=== PATIENT | female | born 1960 | race Caucasian/White ===

== ENCOUNTER → 2016-07-14 | Outpatient (CLI) | payer BC ==
[~2016-07-14] MED LIST: ADVIN25050 INH; CZRUNK; GFNSR600; PSEU30TA20; SNG10 PO
== END | disposition home or self-care (01) ==
LOC: C.LABSPEC 10:57
PROVIDERS: ATTEND Obstetrics & Gynecology
DX: Z01.419 Encounter for gynecological examination (general) (routine) without abnormal findings (principal); N76.2 Acute vulvitis

== ENCOUNTER → 2016-07-14 | Outpatient (CLI) | payer BC | END | disposition home or self-care (01) | LOC: C.PAPS 11:24 | PROVIDERS: ATTEND Obstetrics & Gynecology | DX: Z01.419 Encounter for gynecological examination (general) (routine) without abnormal findings (principal); N76.2 Acute vulvitis ==

== ENCOUNTER → 2016-10-13 | Outpatient (CLI) | payer BC ==
--- NOTE | 2016-10-13 15:37 | MAMMOGRAPHY REPORT ---
UNILATERAL LEFT DIGITAL DIAGNOSTIC MAMMOGRAM TOMOSYNTHESIS WITH CAD: 10/13/2016 CLINICAL HISTORY: Six-month follow-up of left breast calcifications. TECHNIQUE: Breast tomosynthesis in addition to standard 2D mammography was performed. Current study was also evaluated with a Computer Aided Detection (CAD) system. Left CC and MLO 2-D and tomosynthes is images and spot magnification left CC and MLO views were obtained. COMPARISON: Comparison is made to exams dated: 02/17/2016 ultrasound, 02/17/2016 mammogram - [facility], 05/19/2015 mammogram, 05/11/2012 mammogram, 04/15/2011 mammogram, and 10/01/2009 ma mmogram. BREAST COMPOSITION: The tissue of the left breast is heterogeneously dense, which may obscure small masses. FINDINGS: Spot magnification views of the left breast demonstrate loosely grouped calcifications in the left upper inner quadrant, which are smudgy and amorphous on the cc view and demonstrate layering on the lateral view, consistent with benign milk of calcium. The calcifications do not appear signi ficantly changed compared to the February 2016 exam. The remainder of the left breast is stable comp ared to prior exams, without suspicious masses, calcifications, or areas of architectural distortion noted. The previously seen questionable architectural distortion within the left lateral breast is n ot evident on the current exam and is consistent with normal fibroglandular tissue. The patient repo rts she has continued right breast pain although it is improved. IMPRESSION: ACR BI-RADS CATEGORY 2: BENIGN The left upper inner quadrant calcifications are stable compared to the February 2016 exam, and are b enign and consistent with milk of calcium. There is no mammographic evidence of malignancy in the lef t breast. Return to annual mammogram screening schedule is recommended, due February 2017. Also annmarie mmend continued clinical follow-up for right breast pain. The patient has been verbally notified of the results. Approximately 10% of breast cancers are not detected with mammography. A negative mammographic report should not delay biopsy if a clinically suggestive mass is present. Lillian Yo M.D. /:10/13/2016 08:56:51 Director Financial Planning: Abby CORDOVA)(Eric), [facility] letter sent: Normal 1/2 BI-RADS Code: ACR BI-RADS Category 2: Benign
== END | disposition home or self-care (01) ==
LOC: C.MAMM 08:12
PROVIDERS: ATTEND Student in an Organized Health Care Education/Training Program
DX: R92.1 Mammographic calcification found on diagnostic imaging of breast (principal)

== ENCOUNTER → 2017-05-16 | Outpatient (CLI) | payer OTHER, BC ==
[~2017-05-16] MED LIST changes: +OPTIRAY 320 IV PRN
--- NOTE | 2017-05-16 15:10 | DIAGNOSTIC IMAGING REPORT ---
(CHEST) THORAX WITH CLINICAL HISTORY: 57 years-old Female presenting with PULMONARY NODULE, cough. TECHNIQUE: Multidetector CT imaging of the chest was performed after the administration of intravenous contrast. IV contrast: 92 mL of Optiray 320. A dose lowering technique was used consistent with the principles of ALARA (as low as reasonably achievable). COMPARISON: None. CT DOSE (mGy.cm): The estimated cumulative dose is 596.70 mGy.cm. FINDINGS: Custody Assistant topogram: Unremarkable. On soft tissue windows, normal thyroid. Two hyperdense nodules in the superior anterior mediastinum noted, indeterminate (series 4 image 44 and image 50). These are separate from the thyroid. No axillary, supraclavicular, hilar, or mediastinal lymphadenopathy. Normal aorta. Normal heart size. No pericardial or pleural effusion. Hepatic steatosis. On lung windows, solid partially calcified nodule in the right upper lobe measuring 13 mm (series 4 image 99). This does not clearly contain macroscopic fat. There appears to be associated bronchial debris in the subsegmental bronchus supplying this region. Punctate solid nodule in the right middle lobe (series 4 image 142). Calcified granuloma in the right lower lobe. Minimal bandlike opacities in the left lung likely scarring or atelectasis. Central airways patent. On bone windows, degenerative changes of the spine. IMPRESSION: 1. Solid 13 mm right upper lobe nodule, which is partially calcified. This is not contain macroscopic fat to suggest a hamartoma. This is indeterminate. Follow-up per Zayra Society 2017 recommendations below. 2. Additional punctate right middle lobe nodule. 3. Indeterminate hyperdense nodules in the superior mediastinum. Attention on follow-up. Please refer to below summary of Fleischner Society 2017 recommendations for follow-up of incidental CT nodules (H Sunshine et al. Guidelines for management of incidental pulmonary nodules detected on CT images: From the Fleischner Society 2017. Radiology 2017; 284: 228-243.) SOLID NODULES Single nodule; size < 6 mm * Low risk patients: No routine follow-up * High risk patients: Optional CT at 12 months Single nodule; size 6-8 mm * Low risk patients: CT at 6-12 months, then consider CT at 18-24 months * High risk patients: CT at 6-12 months, then at 18-24 months Single nodule; size > 8 mm * Either low or high risk patients: Considered CT at 3 months, PET/CT, or tissue sampling Multiple nodules; size < 6 mm * Low risk patients: No routine follow up * High risk patients: Optional CT at 12 months Multiple nodules; size 6-8 mm * Low risk patients: CT at 3-6 months, then consider CT at 18-24 months * High risk patients: CT at 3-6 months, then at 18-24 months Multiple nodules; size > 8 mm * Low risk patients: CT at 3-6 months, then consider at 18-24 months * High risk patients: CT at 3-6 months, then at 18-24 months Note: These guidelines apply to incidental nodules. These guidelines do not apply to patients younger than 35 years, immunocompromised patients, or patients with cancer. * Low risk patients: Minimal or absent history of smoking and/or other known risk factors * High risk patients: History of smoking, exposure to other carcinogens, emphysema, fibrosis, upper lobe location, family history of lung cancer, etc. * If a nodule up to 8 mm is partly solid or is ground glass, further follow-up is required after 24 months to exclude possible slow growing adenocarcinoma. SUBSOLID NODULES Single ground-glass nodule * Nodule size < 6 mm: No routine follow-up * Nodule size > or = 6 mm: CT at 6-12 months to confirm persistence, then CT every 2 years until 5 years Single part-solid nodule * Nodule size < 6 mm: No routine follow-up * Nodules size > or = 6 mm: CT at 3-6 months to confirm persistence. If unchanged and solid component remains < 6 mm, annual CT should be performed for 5 years Multiple nodules * Nodule size < 6 mm: CT at 3-6 months. If stable, consider CT at 2 and 4 years. * Nodules size > or = 6 mm: CT at 3-6 months. Subsequent management based on the most suspicious nodule(s) Electronically signed by: Justin Collins M.D. 05/16/2017 3:09 PM Dictated Date/Time: 05/16/2017 3:04 PM
== END | disposition home or self-care (01) ==
LOC: C.CTS 14:43
PROVIDERS: ATTEND Physician Assistant
DX: R91.1 Solitary pulmonary nodule (principal); R91.8 Other nonspecific abnormal finding of lung field

== ENCOUNTER → 2017-05-25 | Outpatient (CLI) | payer OTHER, BC ==
[~2017-05-25] MED LIST changes: -OPTIRAY 320 IV PRN
--- NOTE | 2017-05-25 13:47 | DIAGNOSTIC IMAGING REPORT ---
PET/CT SKULL-THIGH HISTORY: Lung nodule R91.1 TECHNIQUE: PET/CT was performed from the base of the skull through the pelvis following the intravenous administration of 14.8 mCi of F18-FDG. Non-contrast CT imaging was performed over the same range without breath-hold for attenuation correction of PET images and anatomic correlation, but not for primary interpretation as it is not of standard diagnostic quality. CT DOSE: COMPARISON: CT chest 05/16/2017 FINDINGS: HEAD AND NECK: There is no FDG-avid disease or significant lymphadenopathy in the imaged portions of the head and the neck. CHEST: There is no FDG-avid disease in the chest. There is no axillary, mediastinal, or hilar lymphadenopathy. There is no pleural or pericardial effusion. There is no air-space disease or suspicious lung nodule. Calcified right midlung nodular shows no abnormal activity characteristics. Small subcentimeters nodes the superior mediastinum also show no activity of significance. ABDOMEN/PELVIS: Below the diaphragm, tracer is distributed physiologically in the gastrointestinal and genitourinary tracts. There is no significant lymphadenopathy and no FDG-avid disease. MUSCULOSKELETAL: There is no FDG-avid or destructive bone lesion. IMPRESSION: 1. No evidence for abnormal metabolic activity characteristics. 2. A nodular density of the right lung shows no significant FDG activity is highly suspect for a benign calcified granuloma. 3. These are mediastinal nodes procedure described are too small to register on this scan 4. A one-year CT of the chest follow-up is felt to be satisfactory The above report was generated using voice recognition software. It may contain grammatical, syntax or spelling errors. Electronically signed by: Gianluca Felder M.D. 05/25/2017 1:45 PM Dictated Date/Time: 05/25/2017 1:33 PM
== END | disposition home or self-care (01) ==
LOC: C.PET 10:40
PROVIDERS: ATTEND Physician Assistant
DX: R91.8 Other nonspecific abnormal finding of lung field (principal)

== ENCOUNTER → 2017-06-16 | Day surgery (SDC) | payer OTHER, BC ==
--- NOTE | 2017-06-15 21:07 | History and Physical ---
History & Physical Date of Service Jun 15, 2017. History & Physical 57-yo female presents for bronchoscopic evaluation of lung nodule, bronchiectasis and recurrent cough after multiple rounds of antibiotics PMHx includes: History of asthma, GERD, fibromyalgia, obesity, chronic sinusitis. She is a life-long non-smoker. Exposure history: stone and salt dust through [employer]. Patient reports longstanding history of upper and lower respiratory symptoms. She states that as a very young child she developed symptoms of recurrent severe cough often times productive. She reports at 1 point when she was a teenager she was diagnosed with asthma symptomatic of frequent cough and intermittent laryngitis and wheeze. Additionally she has chronic difficulty with her sinuses and has seen ENT in the past without ongoing follow-up. She states that she did have an ENT - turbinate surgery surgery however the details of this are unknown. She has been prescribed Advair 500/50 as well as ProAir duo nebs in the past. On evaluation of her hospital chart, it appears 01/2007 she underwent bronchoscopy with Dr. Mireles (no growth on BAL) then transferred care to Dr. Maharaj. 11/[address] Maharaj for recurrent / persistent cough with intermittent hemoptysis which she noted 2-3 months of post- procedural relief (BAL + saprophytic fungus only). I do have a PFT on record approximately 2008 which described FVC: 95 %, FEV1: 96 %, FEF 25-defer as 5 % : 87 %, TLC 123 %, RV: 164 %. The patient states that generally she will develop significant sinus symptoms and often requires up to 3 weeks of antibiotics. She has not seen her ear nose and throat physician for quite some time. 02/2017 she developed symptoms of sinus pressure, postnasal drainage since and bloody rhinorrhea. Additionally she reports associated symptoms of cough and chest congestion. She is prescribed azithromycin without improvement. She returned to her physician's office at which point she was prescribed what may have been Augmentin as well as a prednisone taper. Unfortunately symptoms of cough wheeze, upper and lower respiratory congestion persisted. She returned to her physician's office at which point she completed a course of levofloxacin as well as a Medrol Dosepak (Reports this is better tolerated vs prednisone) and Tessalon Perles. She has been using her nebulizer frequently however continue to describe persistent symptoms. Her workup included a chest x-ray which was abnormal particularly on the right which ultimately led to a CT of the chest (as below) and PET/CT today. CT 05/16/2017: Solid partially calcified nodule in the right upper lobe measuring 13 mm with associated bronchial debris and bronchiectasis supplying this region. Punctate solid nodule in RML as well as calcified granuloma in RLL with minimal bandlike opacities in left lung likely scarring or atelectasis. PET-CT 05/25/2017: No FDG uptake in the chest. No evidence of lymphadenopathy. Patient denies any personal history of tobacco use. She reports some secondhand exposure through family members. She was born in [place] and lived in [place] from [id number] before moving back to [place]. She currently works for [employer] x 28 years with exposure to salt and mixed stone dust. She denies any prior service in the . She reports very very rare alcohol use and denies recent travel. Patient lives with her father who is chronically ill and she provides his home care. She has 1 cat in the home he is approximately 13 years old. Heat: oil. Patient reports her paternal uncle was diagnosed with emphysema but otherwise denies any family history of lung disease or lung cancer. She denies any personal history of cancer or significant cardiac disease. She is prescribed Flonase as well as Singulair and use the Neti pot for her allergy/sinus symptoms. Additionally she does take ranitidine and Protonix for GI acid reflux. Review of Systems Constitutional: recent with prednisone lb weight gain, but no fever, no chills and not feeling tired. Eyes: negative. ENT: nosebleeds and nasal discharge, but as noted in HPI and no sore throat. Cardiovascular: no chest pain, no palpitations and no lower extremity edema. Respiratory: cough, wheezing and shortness of breath during exertion. Gastrointestinal: heartburn. Hematologic/Lymphatic: negative. Active Problems 1. Asthma (J45.909) 2. Bilateral groin pain (R10.30) 3. Fatty liver (K76.0) 4. Hypertension (I10) 5. Irregular menstrual cycle (N92.6) 6. Rectovaginal fistula (N82.3) 7. Scoliosis (M41.9) 8. Thickened endometrium (R93.8) 9. Type 2 diabetes mellitus (E11.9) 10. Vulvitis (N76.2) 11. Well woman exam with routine gynecological exam (Z01.419) Surgical History 1. History of Dental Surgery 2. History of Dilation And Curettage 3. History of Laparosc Fulguration Pelvic Peritoneum Endometriotic Tissue 4. History of Tubal Ligation Social History Never smoker Current Meds 1. Estrace 0.1 MG/GM Vaginal Cream; INSERT 1 GRAM INTRAVAGINALLY TWICE WEEKLY; Therapy: 03Jul2014 to (Last Rx:03Jul2014) Requested for: 03Jul2014 Ordered 2. Fluconazole 100 MG Oral Tablet; 1 tablet by mouth daily for 7 days; Therapy: 14Jul2016 to (Last Rx:14Jul2016) Requested for: 14Jul2016 Ordered 3. Nystatin [id number] UNIT/GM External Cream; apply to affected area tid for 7-10 days; Therapy: 14Jul2016 to (Last Rx:14Jul2016) Requested for: 14Jul2016 Ordered 4. Advair Diskus MISC; Therapy: (Recorded:[id number]) to Recorded 5. Albuterol Sulfate HFA AERS; Therapy: (Recorded:[id number]) to Recorded 6. Fish Oil 1000 MG Oral Capsule; TAKE 1 CAPSULE DAILY; Therapy: (Recorded:[id number]) to Recorded 7. Flexeril 10 MG TABS; TAKE TABLET PRN; Therapy: (Recorded:[id number]) to Recorded 8. Losartan Potassium 50 MG Oral Tablet; TAKE 1 TABLET DAILY; Therapy: (Recorded:[id number]) to Recorded 9. Protonix 40 MG Oral Packet; Therapy: (Recorded:14Jul2016) to Recorded 10. Singulair TABS; Therapy: (Recorded:[id number]) to Recorded 11. Sudafed TABS; TAKE TABLET PRN; Therapy: (Recorded:[id number]) to Recorded 12. Vitamin B12 TABS; Therapy: (Recorded:14Jul2016) to Recorded 13. Vitamin D 1000 UNIT Oral Tablet; TAKE 1 TABLET DAILY; Therapy: [id number] to Recorded Allergies 1. Lisinopril TABS 2. Relafen TABS 3. Savella TABS 4. Sulfa Drugs Vitals Vital Signs Recorded: 25May2017 03:10PM Blood Pressure: 132 / 80, RUE, Sitting Height: 5 ft 5 in Weight: 223 lb 7 oz BMI Calculated: 37.18 BSA Calculated: 2.07 Respiration: 20 O2 Saturation: 95, RA Temperature: 98.3 F Heart Rate: 80 Physical Exam Constitutional: Well developed, well nourished overweight female. No acute distress. Head: + facial symmetry Eyes: EOMi, PERRLA, no conjunctival injection Mouth: Mallampati III No erythema, exudate, or post nasal gtt Neck: Trachea midline. No adenopathy or masses Respiratory: Non-labored respirations. Intermittent wheeze, cleared on cough. No rales or rhonchi. No clubbing or cyanosis. Cardiovascular: RRR, no MRG. +2 radial pulses. <1s capillary refill. Abdomen: soft, active bowel sounds Integumentary: no rashes, or ecchymosis MSK/Extremities: Moving and developed symmetrically. No peripheral edema. No calf tenderness. Neurologic: A&O, data recall in-tact. Appropriate affect.
[~2017-06-16] VITALS: Ht 165.1 cm; Wt 101.5 kg
[~2017-06-16] MED LIST changes: +BIOF500T PO; +FENTANYL CITRATE INJ 50 MCG/1 ML 2 ML VIAL IV ONE; +FEXO1TAB49 PO; +LIDOCAINE 4% INH SOLN 4 ML BTL NEB ONE; +LIDOCAINE HCL 2% LOCAL 50ML VIAL INSTIL ONE; +LIDOCAINE VISCOUS 2% 100ML TOP ONE; +LOSA50TA6 PO; +MIDAZOLAM HCL 5 MG/ML 1 ML VIAL IV ONE; +NURSING VERBAL MED ORDER ONE; +OXYMETAZOLINE HCL 0.05% NA SPR 15 ML BTL ONE; +PRT/20 PO; +ROPI1TAB PO; +SODIUM CHLORIDE 0.9% 1000ML 1,000 ML IV SCH; +Sudafed PO
[2017-06-16 09:06] LABS: BASO % 0.3 %; BASO ABS # 0.02 K/uL (0-0.2); EOS % 1.6 %; HEMATOCRIT 40.6 % (37-47); HEMOGLOBIN 14.7 g/dL (12.0-16.0); IG# 0.01 K/uL (0.00-0.02); LYMPH % 37.7 %; LYMPH ABS # 2.32 K/uL (1.2-3.4); MEAN CELL VOLUME 87.9 fL (80-100); MEAN CORPUSCULAR HEMOGLOBIN 31.8 pg (25-34); MEAN CORPUSCULAR HGB CONC 36.2 g/dl (32-36); MEAN PLATELET VOLUME 9.7 fL (7.4-10.4); MONO % 6.7 %; MONO ABS # 0.41 K/uL (0.11-0.59); NEUT % 53.5 %; PLATELET COUNT 151 K/uL (130-400); RED CELL DISTRIBUTION WIDTH CV 12.8 % (11.5-14.5); WHITE BLOOD COUNT 6.16 K/uL (4.8-10.8)
[2017-06-16 09:20] LABS: PTT PATIENT 25.5 SECONDS (21.0-31.0)
[2017-06-16 09:22] LABS: BLOOD UREA NITROGEN 18 mg/dl (7-18); CALCIUM 9.3 mg/dl (8.5-10.1); CARBON DIOXIDE 26 mmol/L (21-32); CREATININE 0.79 mg/dl (0.60-1.20); GLUCOSE 125 mg/dl (70-99); POTASSIUM 3.7 mmol/L (3.5-5.1); SODIUM 141 mmol/L (136-145)
[2017-06-16 09:51] VITALS: BP 128/65; PULSE 85; TEMP 36.4; O2SAT 95; Ht 165.1 cm; Wt 101.5 kg
--- NOTE | 2017-06-16 12:30 | History & Physical Bridge Note ---
H&P Re-Evaluation Bridge Note: I have examined the patient, reviewed the History & Physical and in the interval since the performance of the History & Physical I have noted the following changes of clinical significance: No changes noted
--- NOTE | 2017-06-16 12:31 | Pre Sedation Assessment ---
Pre Sedation Assessment General Date of Sedation: Jun 16, 2017. Vital Signs Past 12 Hours Date Time Temp Pulse Resp B/P (MAP) Pulse Ox O2 Delivery O2 Flow Rate FiO2 06/16/17 09:51 36.4 85 20 128/65 (86) 95 Room Air Review Cardiovascular: regular rate, rhythm, no edema, no gallop, no JVD, no murmur, normal peripheral pulses Lungs: + wheezing Pre-Sedation Airway Assessment Smoking Status: Never Smoker Hx of Sleep Apnea: No Hx of difficult intubation: No Short Thick Neck: No Thyro-mental Distance: > 3 Finger Breadths Oral Cavity: Dentures Mallampati Classification: Class II ASA Classification: Class II NPO Status Date of Last Intake of Fluids: Jun 15, 2017 Time of Last Intake of Fluids: 2229 Date of Last Intake of Solids: Jun 15, 2017 Time of Last Intake of Solids: 2229 Procedure Planning Contraindications for Sedation: None Current Medications Reviewed: Yes Notes The planned sedation has been discussed with the patient. Informed Consent was obtained. I have identified the patient, determined the appropriateness of sedation and have assessed the patient immediately prior to the procedure. All medicine(s) and interventions are by my order.
--- NOTE | 2017-06-16 13:42 | Discharge Instructions ---
Discharge Instructions Date of Service Jun 16, 2017. Admission Reason for Admission: Asthma, Bronchiectasis, Nodule, Hemoptysis Discharge Discharge Diagnosis / Problem: Chronic cough Discharge Goals Goal(s): Diagnostic testing Activity Recommendations Activity Limitations: resume your previous activity Driving or Machine Use: resume 1 day after discharge . Current Hospital Diet Patient's current hospital diet: Discharge Diet Recommended Diet: Regular Diet Procedures Procedures Performed: Bronchoscopy, conscious sedation, bronchial lavage of the right lower and right upper lobe Pending Studies Studies pending at discharge: no Medical Emergencies . Who to Call and When: Medical Emergencies: If at any time you feel your situation is an emergency, please call 911 immediately. . Non-Emergent Contact Non-Emergency issues call your: Janitorial Tech Call Non-Emergent contact if: temperature is above 101 . . "Provider Documentation" section prepared by Chai Eaton. .
--- NOTE | 2017-06-16 13:43 | Post Sedation Assessment ---
Post Sedation Assessment General Date of Sedation Jun 16, 2017. Vital Signs: Vital Signs Past 12 Hours Date Time Temp Pulse Resp B/P (MAP) Pulse Ox O2 Delivery O2 Flow Rate FiO2 06/16/17 13:35 84 20 133/79 96 Oxymask 8 06/16/17 13:30 95 20 126/92 93 Oxymask 8 06/16/17 13:25 83 20 133/90 93 Oxymask 8 06/16/17 13:20 84 20 132/84 97 Oxymask 8 06/16/17 13:15 84 20 123/87 99 Oxymask 8 06/16/17 13:10 85 20 133/85 97 Oxymask 8 06/16/17 13:05 76 20 135/87 100 Oxymask 8 06/16/17 13:00 96 20 147/114 100 Oxymask 8 06/16/17 12:55 74 20 139/93 100 Oxymask 8 06/16/17 09:51 36.4 85 20 128/65 (86) 95 Room Air Post Procedure Recovery Score Activity: (2) Moves 4 extremities * Respiration: (2) Deep breath/cough Circulation: (2) +/-20% PreAnes Value Consciousness: (1) Arouseable (by name) Oxygen Saturation: (1) O2 needed for >90% Post Anesthesia Score: 8 Discharge Sedation Level of Care: Fast Track Phase II Post Sedation Plan On clinical assessment, the patient appears to have tolerated the sedation without complications. Patient is recovering as anticipated. Patient will continue to be monitored by nursing and may be discharged when sedation discharge criteria are met per below protocol. Upon Completions of procedure and additional 15 minutes continue every 5 minute vital signs and the P.A.R. score; then discharge to a Phase I or Fast Track to Phase II per the following guidelines: * Discharge Patient to appropriate Phase II area if PAR is 8 or greater or return to pre- procedure baseline. The post - procedure orders will be as directed. * If PAR score is less than 8 or not return to pre-procedure baseline then patient will follow Phase I monitoring till PAR is reached for Phase II. The Phase I may be done in procedure room or may call to secure a Phase I area. * If naloxone or flumazenil are used for reversal, hold in Phase I for an additional 60 -120 minutes before discharge to Phase II. Please call the Sedation Physician to re-evaluate and complete post-note for discharge to Phase II area. Do NOT discharge from procedure sedation or Phase 1 until post- sedation evaluation note is complete by procedure /sedation MD Sedation Discharge Instructions to be given to the patient at discharge to home.
--- NOTE | 2017-06-16 13:47 | Bronchoscopy Procedure Note ---
Bronchoscopy Procedure Note Procedure: Bronchoscopy, conscious sedation, bronchial lavage Consent: Obtained through the patient placed into the chart Pre-procedural diagnosis: Chronic cough Post-procedural diagnosis: Chronic cough Start time: 1309 End time: 1329 Total time: 20 minutes Analgesia: 2% liquid lidocaine: Via nebulizer 4% gel lidocaine: Via right naris 2% liquid lidocaine: Via bronchoscopy Sedation: Versed IV: 4mg Fentanyl IV: 87.5g Procedure: The Olympus video bronchoscope was used for this procedure and passed down through the right naris Retroflexed off the soft palate: Notable nasal polyps bilaterally Right naris/posterior naris/posterior oropharynx: Anatomically within normal limits Glottis: Anatomically within normal limits Vocal cords: Proper abduction and abduction, anatomically within normal limits Subglottis/trachea/Shante: Anatomically within normal limits Right bronchial tree: Right mainstem bronchus: Anatomically within normal limits Right upper lobe: Anatomically within normal limits Bronchus intermedius: Anatomically within normal limits Right middle lobe: Anatomically within normal limits Right lower lobe: Anatomically within normal limits Findings: No significant findings noted Left bronchial tree: Left mainstem bronchus: Anatomically within normal limits Left upper lobe: Anatomically within normal limits Lingula: Anatomically within normal limits Left lower lobe: Anatomically within normal limits Findings: No significant findings noted Bronchial alveolar lavage: Right upper lobe and right lower lobe EBL: None Complications: None Follow-up: ASU
[2017-06-16 13:52] VITALS: BP 132/73; PULSE 73; TEMP 36.4; O2SAT 97
[2017-06-16 14:22] VITALS: BP 123/73; PULSE 87; O2SAT 95
[2017-06-16 14:52] VITALS: BP 149/78; PULSE 89; TEMP 36.5; O2SAT 94
[2017-06-16 15:22] VITALS: BP 135/78; PULSE 95; TEMP 36.4; O2SAT 95
== END | disposition home or self-care (01) ==
LOC: C.ACU 08:42
PROVIDERS: ATTEND Internal Medicine Critical Care Medicine
DX: R04.2 Hemoptysis (principal); R91.1 Solitary pulmonary nodule; J47.9 Bronchiectasis, uncomplicated; J45.909 Unspecified asthma, uncomplicated; K21.9 Gastro-esophageal reflux disease without esophagitis; M79.7 Fibromyalgia; E66.9 Obesity, unspecified; Z68.37 Body mass index [BMI] 37.0-37.9, adult